=== PATIENT | male | born 1975 | race American Indian/Alaskan Native ===

== ENCOUNTER 2021-09-16 11:48 | Emergency (ER) | payer BC, OTHER ==
[~2021-09-16] VITALS: Ht 185.4 cm; Wt 139.2 kg
[~2021-09-16 11:48] MED LIST: AZITHROMYCIN250 MG PO; CIPROFLOXACIN500 MG PO; CLINDAMYCIN HC300 MG PO; DOXYCYCLINE HY100 MG PO; GUAIATUSSIN AC118 ML PO; LISINOPRIL10 MG PO; LISINOPRIL2.5 MG PO; NORCO 10-325 T1 EACH PO; PERCOCET 5-3251 EACH PO; PREDNISONE10 M1 PO; SEPTRA DS TABL1 EACH PO
[2021-09-16] MEDS ORDERED: ALLOPURINOL300 MG PO (12:16)
[2021-09-16] MEDS ORDERED: PREDNISONE10 MG PO (15:17)
== END 2021-09-16 15:27 | disposition home or self-care (01) ==
LOC: ED 11:48
DX: M10.9 Gout, unspecified (principal); I10 Essential (primary) hypertension; Z87.891 Personal history of nicotine dependence; Z79.899 Other long term (current) drug therapy; Z88.8 Allergy status to other drugs, medicaments and biological substances; Z88.1 Allergy status to other antibiotic agents
CPT/HCPCS: 73560; 99283-25; J7512

== ENCOUNTER 2022-05-06 11:12 | Emergency (ER) | payer BC, OTHER ==
[~2022-05-06] VITALS: Ht 185.4 cm; Wt 139.2 kg
[~2022-05-06 11:12] MED LIST changes: +ALLOPURINOL300 MG PO; +PREDNISONE10 MG PO
[2022-05-06] MEDS ORDERED: LISINOPRIL10 MG PO (16:21)
--- NOTE | 2022-05-06 21:53 | EKG ---
[facility] [address] [facility] [place] [address] Signed Normal sinus rhythm Possible Left atrial enlargement Borderline ECG No previous ECGs available Confirmed by NITISH ANDRE MD ([id number]) on 05/06/2022 9:53:01 PM Electronically Signed By: NITISH ANDRE MD 05/06/222152 PATIENT NAME: RIKY PINEDO ZEFERINO Electrocardiogram DATE OF : 77 PHYSICIAN: NITISH ANDRE MD REPORT #: [id number] REPORT IS CONFIDENTIAL AND NOT TO BE RELEASED WITHOUT AUTHORIZATION
== END 2022-05-06 16:09 | disposition home or self-care (01) ==
LOC: ED 11:12
DX: I11.0 Hypertensive heart disease with heart failure (principal); I50.9 Heart failure, unspecified; M10.9 Gout, unspecified; Z87.891 Personal history of nicotine dependence; Z88.1 Allergy status to other antibiotic agents; Z88.2 Allergy status to sulfonamides; Z88.8 Allergy status to other drugs, medicaments and biological substances; Z79.899 Other long term (current) drug therapy
CPT/HCPCS: 36415; 71045; 80048; 83880; 85025; 93005; 93010; 96374; 99285-25; J1940

== ENCOUNTER 2022-11-03 12:15 | Emergency (ER) | payer BC, OTHER ==
[~2022-11-03] VITALS: Ht 185.4 cm; Wt 131.5 kg
[2022-11-03] MEDS ORDERED: ATORVASTATIN CA20 MG PO (12:49)
[2022-11-03] MEDS ORDERED: METOPROLOL SUCC25 MG PO (12:49)
[2022-11-03] MEDS ORDERED: TORSEMIDE10 MG PO (12:49)
[2022-11-03] MEDS ORDERED: LISINOPRIL20 MG PO (12:49)
[2022-11-03] MEDS ORDERED: LO-DOSE ASPIRIN81 MG PO (12:49)
[2022-11-03] MEDS ORDERED: ONDANSETRON ODT8 MG PO (15:00)
[2022-11-03 15:14] VITALS: BP 121/94
== END 2022-11-03 15:14 | disposition home or self-care (01) ==
LOC: ED 12:15
DX: R22.1 Localized swelling, mass and lump, neck (principal); I10 Essential (primary) hypertension; M10.9 Gout, unspecified; Z87.891 Personal history of nicotine dependence; Z88.1 Allergy status to other antibiotic agents; Z88.2 Allergy status to sulfonamides; Z79.899 Other long term (current) drug therapy; Z79.82 Long term (current) use of aspirin
CPT/HCPCS: 36415; 36556; 80053; 85025; 93882; 99284-25; J1170; J2405

== ENCOUNTER 2023-03-29 09:32 | Emergency (ER) | payer BC, OTHER ==
[~2023-03-29] VITALS: Ht 185.4 cm; Wt 113.4 kg
[~2023-03-29 09:32] MED LIST changes: +ATORVASTATIN CA20 MG PO; +ENOXAPARIN40 MG/0.4 SUB-Q; +LISINOPRIL20 MG PO; +LO-DOSE ASPIRIN81 MG PO; +METOPROLOL SUCC25 MG PO; +ONDANSETRON ODT8 MG PO; +OXYCODONE HCL5 MG PO; +POTASSIUM CHLO20 ME1 PO; +TORSEMIDE10 MG PO; +WARFARIN SODIUM5 MG PO
--- OUTSIDE RECORDS SUMMARY | 2023-03-29 09:44 | XMS ---
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 Ting has no Care Guidelines for this patient. Ok VISIT COUNT ([address] [facility] TOTAL 5 NOTE: Visits indicate total known visits. ED/[facility] [place] TRACKING (12 MO.) 03/29/2023 09:32 [facility] [place] TYPE: Emergency COMPLAINT: - CHEST TIGHTNESS 03/10/2023 07:30 [facility] [place] TYPE: Emergency COMPLAINT: - L KNEE GOUT FLARE UP DIAGNOSES: - Allergy status to other antibiotic agents - Allergy status to sulfonamides - Gout, unspecified - Heart failure, unspecified - Hypertensive heart disease with heart failure - Infection following a procedure, other surgical site, initial encounter - children's court magistrate (current) use of anticoagulants - children's court magistrate (current) use of aspirin - Other jail (current) drug therapy - Other surgical procedures as the cause of abnormal reaction of the patient, or of later complication, without mention of misadventure at the time of the procedure - Personal history of nicotine dependence 11/21/2022 18:59 [facility] [place] TYPE: Emergency COMPLAINT: - SHORTNESS OF BREATH DIAGNOSES: - Allergy status to other antibiotic agents - Allergy status to sulfonamides - Hypertensive heart disease with heart failure - Left ventricular failure, unspecified - assisted (current) use of aspirin - Other jail (current) drug therapy - Personal history of nicotine dependence - Shortness of breath 11/03/2022 12:16 [facility] [place] TYPE: Emergency COMPLAINT: - NECK SWELLING, HIGH B/P/HEART RATE, NAUSEA DIAGNOSES: - Allergy status to other antibiotic agents - Allergy status to sulfonamides - Essential (primary) hypertension - Gout, unspecified - Localized swelling, mass and lump, neck - assisted (current) use of aspirin - Other jail (current) drug therapy - Personal history of nicotine dependence 05/06/2022 11:12 [facility] [place] TYPE: Emergency COMPLAINT: - DIFFICULTY BREATHING DIAGNOSES: - Allergy status to other antibiotic agents - Allergy status to other drugs, medicaments and biological substances - Allergy status to sulfonamides - Gout, unspecified - Heart failure, unspecified - Hypertensive heart disease with heart failure - Other jail (current) drug therapy - Personal history of nicotine dependence - Shortness of breath INPATIENT VISIT TRACKING (12 MO.) 03/10/2023 12:43 [facility] TYPE: Inpatient DIAGNOSES: - Atherosclerotic heart disease of [place] coronary artery without angina pectoris - Disruption of wound, unspecified, initial encounter - Presence of prosthetic heart valve [facility]23 06[facility] DIAGNOSES: - Atherosclerotic heart disease of [place] coronary artery without angina pectoris - Chronic kidney disease, unspecified - Chronic systolic (congestive) heart failure - Encounter for preprocedural cardiovascular examination - Hypoxemia - Nonrheumatic aortic (valve) stenosis - Pulmonary hypertension, unspecified [facility]22 05[facility] DIAGNOSES: - Nonrheumatic aortic (valve) stenosis [email or web address]
[2023-03-29] MEDS ORDERED: ALLOPURINOL100 MG PO (09:47)
[2023-03-29] MEDS ORDERED: VAZALORE81 MG PO (09:47)
[2023-03-29 09:49] LABS: BASOPHILS 0.7 % (0-2); EOSINOPHILS 4.6 % (0-6); HEMATOCRIT 33.9 % (35.0-50.0); HEMOGLOBIN 10.8 g/dL (12.0-18.0); MCHC 31.8 g/dl (30-36); MCV 78.7 fl (81-99); MONOCYTES 8.3 % (0-12); NEUTROPHILS 74.4 % (39-80); PLATELET COUNT 276 K/uL (140-440); RBC 4.31 M/ul (4.3-5.7); RDW 16.4 (10.5-15.0)
[2023-03-29 09:56] LABS: INR 1.45 (0.80-1.30); PROTIME 17.1 Sec (11.2-14.2)
[2023-03-29 10:05] LABS: ALBUMIN 3.2 g/dL (3.4-5.0); ALBUMIN/GLOBULIN RATIO 0.78 (1.1-2.4); BILIRUBIN, TOTAL 0.8 ng/dL (0.2-1.0); BUN/CREATININE RATIO 13.07 (6.0-28.6); CALCIUM 9.1 mg/dL (8.5-10.1); CREATININE, SERUM 1.3 mg/dL (0.70-1.30); LACTIC ACID, BLOOD 0.6 mmol/L (0.4-2.0); PROTEIN, TOTAL 7.3 g/dL (6.4-8.2)
[2023-03-29 13:27] VITALS: BP 127/75
--- NOTE | 2023-03-29 20:41 | EKG ---
[facility] [address] [facility] [place] [address] Signed Normal sinus rhythm Nonspecific T wave abnormality Abnormal ECG When compared with ECG of 21-NOV-2022 22:11, Nonspecific T wave abnormality in anterior leads is now present Confirmed by Ted Macias MD () on 03/29/2023 8:41:26 PM Electronically Signed By: TED MACIAS MD 03/29/232040 PATIENT NAME: RIKY PINEDO Electrocardiogram DATE OF : 77 PHYSICIAN: TED MACIAS MD REPORT #: [id number] REPORT IS CONFIDENTIAL AND NOT TO BE RELEASED WITHOUT AUTHORIZATION
== END 2023-03-29 13:13 | disposition home or self-care (01) ==
LOC: ED 09:32
PROVIDERS: Emergency Medicine
DX: M96.843 Postprocedural seroma of a musculoskeletal structure following other procedure (principal); R55 Syncope and collapse; Z95.2 Presence of prosthetic heart valve; Z87.891 Personal history of nicotine dependence; Z88.1 Allergy status to other antibiotic agents; Z88.2 Allergy status to sulfonamides; Z79.01 Long term (current) use of anticoagulants; Z79.82 Long term (current) use of aspirin; Z79.899 Other long term (current) drug therapy
CPT/HCPCS: 36415; 71260; 80053; 83605; 84484; 85025; 85610; 93005; 93010; A9270; Q9967

== ENCOUNTER 2024-01-18 05:58 | Day surgery (SDC) | payer BC, OTHER ==
[2024-01-15 16:29] VITALS: BP 177/98
[~2024-01-18] VITALS: Ht 185.4 cm; Wt 138.6 kg
[~2024-01-18 05:58] MED LIST changes: +ALLOPURINOL100 MG PO; +MIDAZOLAM HCL 5 MG/5 ML VIAL IV PRN; +VAZALORE81 MG PO; +ZESTRIL10 MG PO; +fentaNYL citrate 100 MCG/2 ML VIAL IV PRN
[2024-01-18 06:06] VITALS: BP 153/89
[2024-01-18] MEDS ORDERED: LACTATED RINGER'S 1,000 ML IV SCH (07:00)
[2024-01-18] MEDS ORDERED: LIDOCAINE HCL 1% 5 ML SDV INJ ONE (07:00)
[2024-01-18] MEDS ORDERED: CEFAZOLIN SODIUM 3 GM/30 ML SYR IV SCH (07:00)
[2024-01-18] MEDS ORDERED: IBLOOD GLUCOSE TEST STRIP 1 EA TEST VI PRN (07:00)
[2024-01-18] MEDS ORDERED: propofoL 200 MG/20 ML VIAL ONE ×2 (07:14→07:44)
--- NOTE | 2024-01-18 08:01 | NUR ---
01/18/24 0801 Alyssa Borges [id number] TO PACU IN LL POSITION. EYES CLOSED. DOES NOT RESPOND TO VERBAL OR TACTILE STIMULI. BREATHING EASY AND UNLABORED WITH ORAL AIRWAY IN PLACE. SPO2 95% ON 6 L O2 VIA SIMPLE MASK.
[2024-01-18 08:54] VITALS: BP 139/87
[2024-01-18] MEDS ORDERED: ENOXAPARIN SODIUM 40 MG/0.4 ML SYR SUB-Q SCH (09:00)
--- NOTE | 2024-01-18 09:49 | OR ---
[facility] [address] [place], [place] [address] Signed DATE OF OPERATION: 01/18/2024 SURGEON: Julee Gar MD PREOPERATIVE DIAGNOSES: 1. Screening. 2. Hemorrhoids. 3. Intermittent rectal bleeding. 4. Intermittent constipation. POSTOPERATIVE DIAGNOSES: 1. 3 mm polyp at 6 cm in rectum. 2. 4 mm polyp at 80 cm in left colon. 3. 5 mm polyp at 60 cm in left colon. PROCEDURE: Colonoscopy with hot biopsy. ESTIMATED BLOOD LOSS: None. INDICATIONS: Ozzy is a 48-year-old obese gentleman, asked to see me for his initial screening colonoscopy. 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 He said he feels much better. He does have some constipation from time to time and he will see some blood in his bowel movements. He attributes this to hemorrhoids. He said he likes to keep his INR on 1.5-2 with his Coumadin and also he takes aspirin. He said he is very familiar with Lovenox shots having used them in the past. He has no family history of colon cancer or polyps. I had met with Ozzy in the office. We had reviewed colonoscopy together. He understands the nature of the test. There is risk including, but not limited to gas bloating, crampy abdominal pain, bleeding, perforation requiring surgery, and missed diagnosis. We also reviewed the written instructions for the bowel prep line by line. He is also a very large man with a body mass index of 40. Given his complex history, he really needs monitored anesthesia care propofol infusion for his safety. He had expressed understanding, wished to proceed as above. PROCEDURE NOTE: Ozzy was taken into our endoscopy suite and placed in the left lateral decubitus position. He was given monitored anesthesia care with propofol infusion per nurse Electronically Signed By: JULEE GAR MD 01/18/24 0949 PATIENT NAME: OZZY PINEDO OPERATIVE REPORT DATE OF : 77 REPORT #: [id number] PHYSICIAN: JULEE GAR MD PCP: ZEFERINO NOVAK MD REPORT IS CONFIDENTIAL AND NOT TO BE RELEASED WITHOUT AUTHORIZATION [facility] [address] [place], [place] [address] Signed mica patcher. A digital rectal exam was performed and this showed probably some very small external hemorrhoids. Good sphincter tone. There were no masses. The adult colonoscope was introduced and advanced under direct visualization camera up into the cecum itself. His prep was good. We could easily see the appendiceal orifice and ileocecal valve. The scope was then slowly withdrawn. We took pictures throughout for photodocumentation. The above-mentioned polyps were easily removed with gentle cautery with the hot biopsy forceps. We were careful not to go deep with the biopsy forceps nor the cautery. We did not apply any clips. There was no diverticulosis. Once in the rectum, the scope was retroflexed and indeed, he does have moderate internal hemorrhoid columns. After this, the gas was suctioned out. The colonoscope removed. Ozzy tolerated the procedure quite well. RECOMMENDATIONS: I will see Ozzy back in my office in seven to 14 days to review his results. We were going to hold his Coumadin for now and give him Lovenox shots. We will let him resume his aspirin in about four days. He has been off the aspirin about three days currently. Julee Gar MD ALB/MODL /[id number] cc: MD Zeferino Tian MD [facility] Copies: JULEE GAR MD, JAMES MD [facility] ~ Electronically Signed By: JULEE GAR MD 01/18/24 0949 PATIENT NAME: OZZY PINEDO ZEFERINO OPERATIVE REPORT DATE OF : 77 REPORT #: [id number] PHYSICIAN: JULEE GAR MD PCP: ZEFERINO NOVAK MD REPORT IS CONFIDENTIAL AND NOT TO BE RELEASED WITHOUT AUTHORIZATION
--- NOTE | 2024-01-22 14:56 | PATH ---
[facility] [address] [place], [place] [address] Signed SPECIMEN(S): A RECTAL POLYP AT 8 CM SPECIMEN(S): B DESCENDING/LEFT COLON POLYP AT 80 CM SPECIMEN(S): C DESCENDING/LEFT COLON AT 60 CM SPECIMEN SOURCE: A. RECTAL POLYP AT 8 CM B. DESCENDING/LEFT COLON POLYP AT 80 CM C. DESCENDING/LEFT COLON AT 60 CM CLINICAL HISTORY: Pre-op: Screening colonoscopy. Post-op: Polyps. FINAL PATHOLOGIC DIAGNOSIS: A. Rectal polyp at 8 cm: - Hyperplastic polyp (one fragment). B. Descending/left colon polyp at 80 cm: - Tubular adenoma (one fragment). C. Descending/left colon at 60 cm: - Hyperplastic polyp (one fragment). LaurenVR:gina MICROSCOPIC EXAMINATION: Histologic sections of all submitted blocks are examined by light microscopy. These findings, together with the gross examination, support the pathologic diagnosis. GROSS DESCRIPTION: A. The specimen, labeled and designated "Melo, rectal polyp at 8 cm," is received in formalin and consists of one richardson soft tissue fragment, 0.2 cm. Entirely submitted in (A1). B. The specimen, labeled and designated "Melo, descending/left colon polyp at 80 cm," is received in formalin and consists of one richardson soft tissue fragment, 0.1 cm. Entirely submitted in (B1). C. The specimen, labeled and designated "Melo, descending/left colon at 60 cm," is received in formalin and consists of one richardson soft tissue fragment, 0.2 cm. Entirely submitted in (C1). VB (under the direct supervision of a pathologist) The Gross Description was prepared using a voice recognition system. The report was reviewed for accuracy; however, sound-alike word errors, addition and/or deletions may occur. If there is any question about this report, please contact Client Services. PATIENT NAME: RIKY PINEDO PATHOLOGY DATE OF : [birth year] REPORT #: [id number] PHYSICIAN: BRIANNA PATHOLOGY PCP: ZEFERINO NOVAK MD REPORT IS CONFIDENTIAL AND NOT TO BE RELEASED WITHOUT AUTHORIZATION [facility] [address] [place], [place] [address] Signed ADDITIONAL NOTES: Immunohistochemical and/or in situ hybridization studies if performed in this case included appropriate positive controls that reacted as expected. This test was developed and its performance characteristics determined by [facility]. It has not been cleared or approved by the U.S. Food and Drug Administration. The FDA has determined that such clearance or approval is not necessary. This test is used for clinical purposes. It should not be regarded as investigational or for research. [facility] is certified under the Clinical Laboratory Improvement Amendments of 1988 (CLIA) as qualified to perform high complexity clinical laboratory testing. PERFORMING LABORATORY: Technical component was performed by [facility], [address] [place] [id number] (CLIA# [id number]). Professional interpretation was performed by [facility], [address] [place] [phone] (CLIA#: [id number]). Diagnostician: Leobardo Jones MD Pathologist Electronically Signed 01/22/2024 Copies: ~ PATIENT NAME: RIKY PINEDO PATHOLOGY DATE OF : [birth year] REPORT #: [id number] PHYSICIAN: BRIANNA PATHOLOGY PCP: ZEFERINO NOVAK MD REPORT IS CONFIDENTIAL AND NOT TO BE RELEASED WITHOUT AUTHORIZATION
== END 2024-01-18 08:45 | disposition home or self-care (01) ==
LOC: DS 05:58 → OPS 05:58 → DS 09:45
PROVIDERS: ATTEND Colon & Rectal Surgery
PROC: 0DBE8ZX Excision of Large Intestine, Via Natural or Artificial Opening Endoscopic, Diagnostic (ICD-10-PCS; principal; 2024-01-18 07:30)
DX: Z12.11 Encounter for screening for malignant neoplasm of colon (principal); D12.4 Benign neoplasm of descending colon; K62.1 Rectal polyp; K63.5 Polyp of colon; K64.8 Other hemorrhoids; K62.5 Hemorrhage of anus and rectum; I13.0 Hypertensive heart and chronic kidney disease with heart failure and stage 1 through stage 4 chronic kidney disease, or unspecified chronic kidney disease; N18.30 Chronic kidney disease, stage 3 unspecified; I50.9 Heart failure, unspecified; E78.5 Hyperlipidemia, unspecified; E66.9 Obesity, unspecified; Z68.41 Body mass index [BMI] 40.0-44.9, adult; Z88.1 Allergy status to other antibiotic agents; Z79.01 Long term (current) use of anticoagulants; Z79.82 Long term (current) use of aspirin; Z79.899 Other long term (current) drug therapy
CPT/HCPCS: 00811; J0690; J1650; J2704; J7121

== ENCOUNTER 2024-05-21 20:59 | Emergency (ER) | payer BC, OTHER ==
[~2024-05-21] VITALS: Ht 185.4 cm; Wt 144.0 kg
[~2024-05-21 20:59] MED LIST changes: -MIDAZOLAM HCL 5 MG/5 ML VIAL IV PRN; -fentaNYL citrate 100 MCG/2 ML VIAL IV PRN
[2024-05-21 21:19] LABS: BASOPHILS 1.6 % (0-2); EOSINOPHILS 7.7 % (0-6); HEMATOCRIT 43.8 % (35.0-50.0); HEMOGLOBIN 14.8 g/dL (12.0-18.0); LYMPHOCYTES 19.7 % (24-44); MCH 28.3 (27-36); MCHC 33.7 g/dl (30-36); MCV 83.8 fl (81-99); PLATELET COUNT 229 K/uL (140-440); RBC 5.23 M/ul (4.3-5.7); RDW 14.4 (10.5-15.0)
[2024-05-21 21:28] LABS: INR 1.36 (0.80-1.30)
[2024-05-21 21:40] LABS: ALBUMIN 3.8 g/dL (3.4-5.0); ALBUMIN/GLOBULIN RATIO 1.06 (1.1-2.4); ANION GAP 9.8 (7-21); BILIRUBIN, TOTAL 0.5 ng/dL (0.2-1.0); BUN/CREATININE RATIO 17.64 (6.0-28.6); CALCIUM 8.9 mg/dL (8.5-10.1); CREATININE, SERUM 1.36 mg/dL (0.70-1.30); MAGNESIUM 2.2 mg/dL (1.8-2.4); POTASSIUM 3.8 mmol/L (3.5-5.1); PROTEIN, TOTAL 7.4 g/dL (6.4-8.2)
[2024-05-21] MEDS ORDERED: WARFARIN SOD 5 MG TAB PO ONE (21:45)
[2024-05-21] MEDS ORDERED: WARFARIN SODIUM5 MG PO (22:49)
[2024-05-21 23:11] VITALS: BP 168/90
--- NOTE | 2024-05-22 22:43 | EKG ---
[facility] [address] [facility] [place] [address] Signed Normal sinus rhythm Normal ECG When compared with ECG of 29-MAR-2023 09:26, Nonspecific T wave abnormality, improved in Anterior leads Confirmed by Ted Macias MD () on 05/22/2024 10:43:14 PM Electronically Signed By: TED MACIAS MD 05/22/242242 PATIENT NAME: RIKY PINEDO Electrocardiogram DATE OF : [birth year] PHYSICIAN: TED MACIAS MD REPORT #: [id number] REPORT IS CONFIDENTIAL AND NOT TO BE RELEASED WITHOUT AUTHORIZATION
== END 2024-05-21 23:13 | disposition home or self-care (01) ==
LOC: ED 20:59
PROVIDERS: Family Medicine
DX: R07.89 Other chest pain (principal); T45.516A Underdosing of anticoagulants, initial encounter; I11.0 Hypertensive heart disease with heart failure; I50.9 Heart failure, unspecified; M10.9 Gout, unspecified; Z95.2 Presence of prosthetic heart valve; Z91.138 Patient's unintentional underdosing of medication regimen for other reason; Z87.891 Personal history of nicotine dependence; Z88.1 Allergy status to other antibiotic agents; Z88.2 Allergy status to sulfonamides; Z79.82 Long term (current) use of aspirin; Z79.01 Long term (current) use of anticoagulants; Z79.899 Other long term (current) drug therapy
CPT/HCPCS: 36415; 71045; 80053; 83735; 83880; 84484; 85025; 85379; 85610; 93005; 93010; 99285-25